=== PATIENT | female | born 1965 | race Caucasian/White ===

== ENCOUNTER → 2017-02-11 | Outpatient (CLI) | payer OTHER ==
--- NOTE | 2017-02-11 15:38 | US ---
EXAMINATION TYPE: US thyroid st tissue head/neck DATE OF EXAM: 02/11/2017 COMPARISON: US CLINICAL HISTORY: R22.0 Swelling, Mass, Or Lump In Neck. Neck swelling and discomfort x 2 years: dedrick en worse within past few months GLAND SIZE: Right Lobe: 4.5 x 1.4 x 1.7 cm Overall Parenchyma: homogenous Left Lobe: 4.4 x 1.2 x 1.4 cm Overall Parenchyma: homogeneous Isthmus Thickness: 0.2 cm NODULES RIGHT: # of nodules measured on right: 0 LEFT: # of nodules measured on left: 1 1. 0.3 X 0.2 x 0.3 cm hypoechoic solid nodule at the mid pole with well-defined margins. This nodul e is wider than tall and shows no intranodular vascularity. Prior size: no previous ISTHMUS: # of nodules measured in the isthmus: 0 Bilateral neck scanned, left neck: 1.5cm hypoechoic vascular area lateral to thyroid, probable lymph node. Homogeneous thyroid with small left lobe nodule described above. IMPRESSION: 1. Subcentimeter nodule left lobe thyroid.
== END | disposition home or self-care (01) ==
LOC: RADUSWWP 09:38
PROVIDERS: ATTEND Internal Medicine
DX: E04.1 Nontoxic single thyroid nodule (principal)
CPT/HCPCS: 76536

== ENCOUNTER → 2017-02-26 | Outpatient (CLI) | payer OTHER ==
--- NOTE | 2017-02-26 12:24 | FL ---
EXAMINATION TYPE: FL barium swallow w video DATE OF EXAM ORDERED: 02/26/2017 HISTORY: R13.10 dysphagia. COMPARISON: None. TECHNIQUE: The patient was challenged with varying food substances ranging from thin liquids through solids. FINDINGS: The patient tolerated all foodstuffs well. There is no evidence of penetration or aspirati on. IMPRESSION: NORMAL MODIFIED BARIUM SWALLOW.
== END | disposition home or self-care (01) ==
LOC: RADFLMAIN 11:34
PROVIDERS: ATTEND Internal Medicine
DX: R13.10 Dysphagia, unspecified (principal)
CPT/HCPCS: 74230

== ENCOUNTER 2018-09-06 06:44 | Day surgery (SDC) | payer OTHER ==
[2018-09-01 13:38] VITALS: BMI 25.7
[~2018-09-06 06:44] MED LIST: LIDOCAINE 1% 20 ML VIAL (10MG/ML) FOR IV START INTRADERMA PRN
[2018-09-06 07:03] VITALS: RESP 16; TEMP 97.8
[2018-09-06] MEDS: LACTATED RINGERS 1,000 ML IV SCH ×2 (07:06→08:05)
[2018-09-06] MEDS ORDERED: fentaNYL (PF) 50 MCG/ML 2 ML AMP ONE (08:07)
[2018-09-06] MEDS ORDERED: PROPOFOL 10 MG/ML 20 ML VIAL IV ONE (08:07)
[2018-09-06] MEDS ORDERED: LIDOCAINE 1% INJ 10MG/ML (20 ML MDV) ONE (08:07)
[2018-09-06] MEDS ORDERED: MIDAZOLAM 2 MG/2 ML VIAL ONE (08:07)
--- NOTE | 2018-09-06 08:37 | P.PCN ---
Date of Procedure: 09/06/18 Procedure(s) Performed: Procedure: Total colonoscopy. Preoperative diagnosis: Positive cologuard test. Postoperative diagnosis: Mild sigmoid diverticulosis with no evidence of acute diverticulitis, strictures, significant polyps or cancer. Preparation: HalfLytely prep. Sedation: Was provided by anesthesia. Brief clinical history: The patient is a 53-year-old female who is scheduled for this evaluation because of finding of positive cologuard test. There is no family history of colon cancer. The patient has no abdominal complaints, bleeding or anemia. This would be her first colonoscopy. Procedure: With the patient on her left lateral decubitus position and after informed consent and adequate sedation, the perianal area was inspected and it did not show any fissures or fistulas. There were no masses felt on digital rectal examination. The Olympus CFH 190L video colonoscope was then inserted in the rectum in the usual fashion and advanced to the cecum. The mucosa appeared healthy. There was occasional small diverticular orifices scattered in the sigmoid but there was no evidence of acute diverticulitis or strictures. No significant polyps or tumors were seen. I retroflexed the endoscope in the rectum before the endoscope was withdrawn. The patient tolerated the procedure well. Plan: The patient was reassured. Discussed dietary measures. She will follow- up with you as planned and I recommended repeat colonoscopy in 10 years.
[2018-09-06 08:58] VITALS: BP 128/88; PULSE 68
== END 2018-09-06 09:23 | disposition home or self-care (01) ==
LOC: ORWHC2ENDO 06:44
DX: Z12.11 Encounter for screening for malignant neoplasm of colon (principal); K57.30 Diverticulosis of large intestine without perforation or abscess without bleeding; J44.9 Chronic obstructive pulmonary disease, unspecified; M19.90 Unspecified osteoarthritis, unspecified site; Z88.0 Allergy status to penicillin; Z88.2 Allergy status to sulfonamides; Z87.891 Personal history of nicotine dependence; Z86.19 Personal history of other infectious and parasitic diseases; Z79.891 Long term (current) use of opiate analgesic; Z79.899 Other long term (current) drug therapy
CPT/HCPCS: 45378; J2250; J2001; J3010; J2704

== ENCOUNTER → 2022-09-16 | Outpatient (CLI) | payer OTHER ==
--- NOTE | 2022-09-16 15:56 | XR ---
EXAMINATION TYPE: XR lumbosacral spine min 4V DATE OF EXAM: 09/16/2022 Comparison: None Clinical History: 57-year-old female M54.5 LOW BACK PAIN, UNSPECIFIED. Prior surgery 2003 Findings: Densities projecting at the left paramedian abdomen may represent ingested medication tablets and jaleel uld be correlated clinically. There are postsurgical changes of L4-L5 posterior and interbody fusion. Mild degenerative disc diseas e throughout the lumbar spine with degenerative grade 1 anterolisthesis above the fusion at L3-L4. Ve rtebral body heights are preserved. Additional facet arthropathy above the fusion. Impression: 1. Status post L4-L5 posterior and interbody fusion. 2. Mild degenerative disc disease throughout. Facet arthropathy and degenerative grade 1 anterolisthe sis above the fusion at L3-L4. 3. No vertebral compression collapse.
== END | disposition home or self-care (01) ==
LOC: RADXRMAIN 10:58
PROVIDERS: ATTEND Family Medicine
DX: M51.36 Other intervertebral disc degeneration, lumbar region (principal); M47.816 Spondylosis without myelopathy or radiculopathy, lumbar region; M43.16 Spondylolisthesis, lumbar region; M43.26 Fusion of spine, lumbar region
CPT/HCPCS: 72110

== ENCOUNTER → 2024-05-20 | Outpatient (CLI) | payer OTHER ==
--- NOTE | 2024-05-23 13:08 | MM ---
Reason for Exam: Screening (asymptomatic). Last mammogram was performed 1 year(s) and 1 month(s) ago. Patient History: Menarche at age 14. First Full-Term at age 16. Right ovary removed at age 34. Hysterectomy at age 34. 10/18/2008, Benign Core Biopsy on the right side. 08/22/2005, Benign Core Biopsy on the left side. Risk Values: Alisha 5 year model risk: 1.4%. NCI Lifetime model risk: 7.4%. Prior Study Comparison: 10/29/2006 Bilateral Screening Mammogram, [facility]. 10/06/2008 Bilateral Diagnostic Mammogram, [facility]. 01/04/2010 Bilateral Screening Mammogram, [facility]. 03/26/2022 Bilateral Screening Mammogram, [facility]. 04/09/2023 Bilateral Screening Mammogram, [facility]. Tissue Density: The breasts are heterogeneously dense, which may obscure small masses. Findings: Analyzed By CAD. Right breast biopsy clip. Right breast: There is no suspicious group of microcalcifications or new suspicious mass. Left breast: There is no suspicious group of microcalcifications or new suspicious mass. Benign-appearing calcifications left breast. Overall Assessment: Benign, BI-RAD 2 Management: Screening Mammogram of both breasts in [address] [facility] will attempt to contact patient to return for supplemental views and ultrasound if indicated. Patient should continue monthly self-breast exams. A clinical breast exam by your physician is recommended on an annual basis. This exam should not preclude additional follow-up of suspicious palpable abnormalities. Note on Alisha scores and lifetime risk: 1. A Alisha score greater than 3% is considered moderate risk. If this is the case, consider specialist referral to assess eligibility for a risk reducing agent. 2. If overall lifetime risk for the development of breast cancer is 20% or higher, the patient may qualify for future screening with alternating mammogram and breast MRI. [facility], , 05/23/2024 1:05 PM. Electronically signed and approved by: Ashok Wilson DO
== END | disposition home or self-care (01) ==
LOC: RADMAMWWP 10:51
PROVIDERS: ATTEND Pediatrics
CPT/HCPCS: 77067